=== PATIENT | female | born 1940 | race Caucasian/White ===

== ENCOUNTER 2018-04-16 06:19 | Day surgery (SDC) | payer MEDICARE, BC ==
[2018-04-16] MEDS ORDERED: PROPOFOL 200 MG/20 ML VIAL As Ordered (06:23)
[2018-04-16] MEDS ORDERED: LIDOCAINE 2% INJ 100 MG/5 ML SDV (FOR ANES.) As Ordered (06:23)
[2018-04-16] MEDS: TETRACAINE 0.5% OPHTH SOLN 4ML As Ordered (06:32)
[2018-04-16 07:03] LABS: BEDSIDE GLUCOSE 88 MG/DL (83-110)
[2018-04-16] MEDS: LIDOCAINE 3.5 % 1ML OPHTH TOPICAL GEL OU (07:04)
[2018-04-16] MEDS: POVIDONE-IODINE 5% OPHTH PREP SOL 30ML As Ordered (07:47)
[2018-04-16] MEDS: LIDOCAINE 2% W/EPIN INJ 20ML **PRES FREE As Ordered (07:48)
[2018-04-16] MEDS: SODIUM BICARBONATE 8.4% INJ 50MEQ 50 ML VIAL As Ordered (07:48)
[2018-04-16] MEDS: TOBRADEX OPHTH OINT 3.5 GM As Ordered (08:13)
[2018-04-16] MEDS ORDERED: MIDAZOLAM INJ 2 MG/2 ML VIAL (J2250) As Ordered (08:14)
== END 2018-04-16 09:15 | disposition home or self-care (01) ==
LOC: M SDC 06:19
DX: H02.834 Dermatochalasis of left upper eyelid (principal); H02.831 Dermatochalasis of right upper eyelid; I12.9 Hypertensive chronic kidney disease with stage 1 through stage 4 chronic kidney disease, or unspecified chronic kidney disease; E11.9 Type 2 diabetes mellitus without complications; M10.9 Gout, unspecified; K21.9 Gastro-esophageal reflux disease without esophagitis; R06.02 Shortness of breath; M15.0 Primary generalized (osteo)arthritis; M54.2 Cervicalgia; N18.9 Chronic kidney disease, unspecified; Z88.8 Allergy status to other drugs, medicaments and biological substances; Z79.899 Other long term (current) drug therapy; Z86.14 Personal history of Methicillin resistant Staphylococcus aureus infection; Z85.51 Personal history of malignant neoplasm of bladder; Z92.21 Personal history of antineoplastic chemotherapy; Z87.891 Personal history of nicotine dependence; Z96.642 Presence of left artificial hip joint; Z96.653 Presence of artificial knee joint, bilateral; Z90.710 Acquired absence of both cervix and uterus; Z98.41 Cataract extraction status, right eye; Z98.42 Cataract extraction status, left eye; Z96.1 Presence of intraocular lens; Z96.611 Presence of right artificial shoulder joint; Z96.612 Presence of left artificial shoulder joint; Z98.51 Tubal ligation status
CPT/HCPCS: 15823

== ENCOUNTER → 2023-11-27 | Outpatient (REF) | payer MEDICARE, BC ==
[~2023-11-27] MED LIST: ALLO100T PO; AMLO1TAB25 PO; BASA100I SC; CALC1CAP31 PO; COMB0.2S OU; FISH10005 PO; LANS30CA PO; OCUVTAB4 PO; RAMI10CA64 PO; TURM500C3 PO; XALA0.007 OU
== END ==
LOC: M LAB REF 16:49
PROVIDERS: ATTEND Ophthalmology
DX: C44.1192 Basal cell carcinoma of skin of left lower eyelid, including canthus (principal)